=== PATIENT | female | born 1955 | race Caucasian/White ===

== ENCOUNTER 2017-08-31 15:00 | Outpatient (CLI) | payer OTHER ==
[~2017-08-31 15:00] MED LIST: ATACAND4 MG PO; N; TUSSI PRES-B L120 M1 PO
== END 2017-09-01 14:00 | disposition home or self-care (01) ==
LOC: TOM 15:00
DX: J44.9 Chronic obstructive pulmonary disease, unspecified (principal); J84.112 Idiopathic pulmonary fibrosis